=== PATIENT | female | born 1970 | race Hispanic/Latino ===

== ENCOUNTER → 2024-01-18 12:43 | Outpatient (REF) | payer OTHER, SELFPAY | LOC: HWWDC 12:43 | PROVIDERS: ATTENDING PHYSICIAN Nurse Practitioner Women's Health; FAMILY PHYSICIAN Family Medicine | DX: Z12.31 Encounter for screening mammogram for malignant neoplasm of breast (principal) | CPT/HCPCS: 77063; 77067 ==

== ENCOUNTER 2024-04-20 13:02 | Emergency (ER) | payer OTHER, SELFPAY ==
[2024-04-20 13:16] VITALS: BP 143/88
--- NOTE | 2024-04-20 15:24 | ED.GENMED ---
History of Present Illness
General
Chief Complaint: Skin Surface Trauma
Source: patient and spouse
Exam Limitations: none
Time Seen by Provider: 04/20/24 13:38
Nursing documentation reviewed up to this point in time: agreed with
History of Present Illness
History of Present Illness:
53-year-old female presenting to the emergency department today with concerns of right hand laceration that occurred from a piece of glass that broke and cut her hand no numbness weakness or additional symptoms otherwise. Low risk for infection.
Past History
Past History
ED Past Medical History: None
ED Past Surgical History:
Social History
Tobacco: Non-smoker
Personal:
Living: with family
Employment: Employed
Review of Systems
Review of Systems
Allergies reviewed?: Yes
All Other Systems: ROS reviewed and negative except as documented in HPI and ROS
Phy Exam
Physical Exam
Physical Exam:
GENERAL: Alert , in no apparent distress
EYE: pupils equal and reactive
NECK: Supple, no significant adenopathy.
ENT: o/p clr, mmm.
CARDIAC: Regular rate and rhythm .
LUNGS: Clear breath sounds bilaterally, no acute respiratory distress, no wheezes/rales/rhonchi
ABDOMEN: Soft, without focal tenderness, no r/g, no cvat
NEUROLOGICAL: Alert and oriented, no focal neuro deficits
SKIN: Skin flap laceration to the right hand on the hypothenar eminence laterally. Warm and dry, skin intact.
MUSCULOSKELETAL: No edema, well perfused.
PSYCH: Normal and appropriate interaction.
Course
Orders/Labs/Results
Orders:
Orders
04/20/24 13:22
Hand, Right 3 View [CR Hand - Right Min 3 Views] Urgent
Comment:
Reason For Exam: laceration from glass eval for fb
Vital Signs
Initial and Last Documented VS:
Initial Vital Signs
Temp Pulse Resp BP Pulse Ox
98.0 F 94 16 143/88 98
04/20/24 13:16 04/20/24 13:16 04/20/24 13:16 04/20/24 13:16 04/20/24 13:16
Last Documented Vital Signs
Temp Pulse Resp BP Pulse Ox
98.0 F 94 16 143/88 98
04/20/24 13:16 04/20/24 13:16 04/20/24 13:16 04/20/24 13:16 04/20/24 13:16
Procedures
Laceration Closure
Right Lateral Ulnar Hand:
Status of Wound: clean
Size of Wound in cm: 3
Description of Wound Edges: flap-poorly vascularized
Preparation: cleaned with saline
Anesthesia: 1% Lidocaine
Revision/Debridement: routine- no revision and irrigate-direct pressure
Wound exploration: explored to base- no FB and no tendon involvement
Type of Closure: single layer closure
Skin Closure Material: 4-0 chromic gut
Number of sutures: 7
MDM/Problems Addressed
MDM/Problems Addressed:
53-year-old female presenting to the emergency department today with concerns of a flap laceration to the right hand. This was cleaned thoroughly and closed with 7 dissolving stitches. Advised for close outpatient follow-up for reassessment.
There is a possibility of the skin flap to off this was explained to the patient who demonstrated understanding. Otherwise stable for discharge return precautions given. X-ray also interpreted by me with no signs of foreign body patient also
given updated tetanus shot here today.
*Critical Care Note
Total Time (30-74mins, 75-104mins- exclusive of procedures): Not Applicable
ED Attending Note
-
Portions of this chart may have been created with voice recognition software.� Occasional wrong word or��sound alike� substitutions may have occurred due to the inherent limitations of voice recognition software.
Discharge Plan
Departure
Patient Disposition: Home (Routine Discharge)
Date of Disposition: 04/20/24
Time of Disposition: 15:31
Patient with high blood pressure during this ER visit?: No
Condition: Good
Covid-19: Not Applicable
Discharge Problem:
Hand laceration
Instructions: Laceration Repair With Stitches (DC)
Prescriptions:
No Action
hydrocodone-acetaminophen 1 TABLET tablet
1 tab PO Q4HPRN PRN (Reason: severe pain) Qty: 15 0RF
ibuprofen 600 MG tablet
600 mg PO Q6H Qty: 20 0RF
Referrals:
Billy Billings DO [Family Provider] -
Activity Restrictions/Additional Instructions:
You came to the emergency department today with concerns of a laceration to your hand. This was cleaned thoroughly and closed with 7 stitches. The skin flap could end up dying off. Please follow-up closely in the next 2 weeks for reassessment.
Return for any worsening, new or concerning symptoms.
Interventions
Interventions:
*Risk Screen - Suicide Last Done: 04/20/24 13:16
*General Assessment Last Done: 04/20/24 13:51
*Neglect/Abuse Screening Last Done: 04/20/24 13:16
ED- Fall Risk Assessment Last Done: 04/20/24 13:51
ED-Skin Assessment Last Done: 04/20/24 13:51
Discharge Date and Time
Print Language: MONGOLIAN
[2024-04-20] MEDS: ADACEL 0.5 ML IM (15:51)
== END 2024-04-20 16:12 | disposition home or self-care (01) ==
LOC: EMR 13:02
PROVIDERS: EMERGENCY PHYSICIAN Emergency Medicine; FAMILY PHYSICIAN Family Medicine
DX: S61.411A Laceration without foreign body of right hand, initial encounter (principal); W25.XXXA Contact with sharp glass, initial encounter; Z23 Encounter for immunization
CPT/HCPCS: 99283; 12002; 90471; 73130; 90715

== ENCOUNTER 2024-05-01 12:55 | Emergency (ER) | payer OTHER, SELFPAY ==
[2024-05-01 12:56] VITALS: BP 128/72
--- NOTE | 2024-05-01 13:09 | ED.GENMED ---
History of Present Illness
General
Chief Complaint: Wound Check/Suture Removal
Source: patient and records
Exam Limitations: none
Time Seen by Provider: 05/01/24 12:59
History of Present Illness
History of Present Illness:
53yoF presenting for suture removal. She was seen in the ED on 04/20/24 for a right hand laceration. Seven chromic gut sutures were placed at that time. She states the stitches are bothering her and she would like them removed rather than waiting for
them to dissolve. No other complaints.
Past History
Past History
ED Past Medical History: None
ED Past Surgical History:
Social History
Tobacco: Non-smoker
Personal:
Living: with family
Employment: Employed
Phy Exam
General Physical Exam
General Presentation: well appearing and no apparent distress
General age: appears stated age
General Skin: warm and dry
General Habitus: normal
General Mental: alert
ENT Exam
ENT Exam: normocephalic
Skin Exam
Skin Exam: normal color, warm/dry and other (R hand: Well healing laceration noted to lateral hand with intact sutures. No signs of infection.)
Psychiatric Exam
Psychiatric Exam: normal mood/affect
Course
Vital Signs
Initial and Last Documented VS:
Initial Vital Signs
Temp Pulse Resp BP Pulse Ox
98.7 F 97 16 128/72 98
05/01/24 12:56 05/01/24 12:56 05/01/24 12:56 05/01/24 12:56 05/01/24 12:56
Last Documented Vital Signs
Temp Pulse Resp BP Pulse Ox
98.7 F 97 16 128/72 98
05/01/24 12:56 05/01/24 12:56 05/01/24 12:56 05/01/24 12:56 05/01/24 12:56
MDM/Problems Addressed
Differential Diagnosis Includes:
53yoF here for suture removal. Wound is well healing on exam without signs of infection. Seven intact sutures removed with suture removal kit. Advised return to the ED with any signs of infection. Patient discharged in stable condition.
*Critical Care Note
Total Time (30-74mins, 75-104mins- exclusive of procedures): Not Applicable
ED Attending Note
-
Portions of this chart may have been created with voice recognition software.� Occasional wrong word or��sound alike� substitutions may have occurred due to the inherent limitations of voice recognition software.
Discharge Plan
Departure
Patient Disposition: Home (Routine Discharge)
Date of Disposition: 05/01/24
Time of Disposition: 13:10
Patient with high blood pressure during this ER visit?: No
Discharge Problem:
Encounter for removal of sutures
Instructions: Stitches Removal
Prescriptions:
No Action
hydrocodone-acetaminophen 1 TABLET tablet
1 tab PO Q4HPRN PRN (Reason: severe pain) Qty: 15 0RF
ibuprofen 600 MG tablet
600 mg PO Q6H Qty: 20 0RF
Referrals:
Billy Billings DO [Family Provider] -
Activity Restrictions/Additional Instructions:
Return to the ER with any signs of infection.
Interventions
Interventions:
*Risk Screen - Suicide Last Done: 05/01/24 12:56
*Neglect/Abuse Screening Last Done: 05/01/24 12:56
*Nursing Disposition Last Done: 05/01/24 13:14
ED-Skin Assessment Last Done: 05/01/24 13:05
Discharge Date and Time
Discharge Date/Time: 05/01/24 13:14
Print Language: EMIRATI
== END 2024-05-01 13:14 | disposition home or self-care (01) ==
LOC: EMR 12:55
PROVIDERS: EMERGENCY PHYSICIAN Emergency Medicine; FAMILY PHYSICIAN Family Medicine
DX: S61.411D Laceration without foreign body of right hand, subsequent encounter (principal); X58.XXXD Exposure to other specified factors, subsequent encounter
CPT/HCPCS: 99281

== ENCOUNTER → 2025-01-19 10:46 | Outpatient (REF) | payer OTHER, SELFPAY | LOC: HWWDC 10:46 | PROVIDERS: ATTENDING PHYSICIAN Nurse Practitioner Women's Health; FAMILY PHYSICIAN Family Medicine | DX: Z12.31 Encounter for screening mammogram for malignant neoplasm of breast (principal) | CPT/HCPCS: 77063; 77067 ==